=== PATIENT | female | born 1980 | race African-American/Black ===

== ENCOUNTER → 2021-07-08 | Outpatient (CLI) | payer OTHER ==
--- NOTE | 2021-07-08 11:55 | RAD ---
Left ankle 3 views. HISTORY: Left ankle pain 3 views were taken of the left ankle. There is soft tissue swelling in the left lower extremity and l eft ankle. There is no acute fracture or acute osseous abnormality. IMPRESSION: 1. Soft tissue swelling. 2. No osseous abnormality noted in the left ankle. Electronically signed by: José Toscano MD (07/08/2021 11:52 AM) [facility]
--- NOTE | 2021-07-08 12:00 | RAD ---
Left lower extremity venous ultrasound, : History: Left lower extremity pain and swelling, M 79.605 Duplex evaluation including grayscale, color flow and spectral Doppler analysis was performed. The femoral and popliteal veins show no filling defects to suggest DVT. The visualized calf veins are u nremarkable. There is superficial edema in the left calf. IMPRESSION: 1. There is no sonographic evidence of deep vein thrombosis in the left lower extremity. Electronically signed by: José Toscano MD (07/08/2021 11:58 AM) [facility]
== END ==
LOC: RAD 11:23
PROVIDERS: ATTEND Family Medicine
DX: M79.89 Other specified soft tissue disorders (principal); M79.605 Pain in left leg; M25.572 Pain in left ankle and joints of left foot
CPT/HCPCS: 73610; 93971

== ENCOUNTER → 2021-09-08 | Outpatient (CLI) | payer OTHER ==
--- NOTE | 2021-09-08 18:14 | RAD ---
EXAMINATION: US BREAST RT, MG DIAGNOSTIC BILAT History: Right breast lump felt by provider. No location in the right breast specified. Unable to klaus ch the ordering physician's office to obtain more information. Comparison: None. Technique: Bilateral digital diagnostic mammogram views were obtained. CAD was utilized. 3-D tomosyn thesis images were acquired. Subsequently, grayscale and color Doppler ultrasound of the entire right breast was performed. Findings: Mammogram: Breast Tissue Density C : The breasts are heterogeneously dense, which may obscure small masses. There are no dominant masses, suspicious microcalcifications, or architectural distortion. Ultrasound: The entire right breast was imaged. At 10:00, 5 cm from the nipple there is a round anechoic simple c yst measuring 3 mm. This has circumscribed margins, through transmission, and no vascularity. There i s normal fibroglandular tissue seen elsewhere in the breasts. No suspicious mass. No lymphadenopathy in the right axilla. IMPRESSION: 1. No evidence of malignancy. 2. 3 mm incidental simple cyst in the right breast at 10:00 5 cm the nipple. 3. Of note, there was no location or quadrant provided for the reported right breast lump felt by the provider, and we were unable to reach the ordering physician's office for clarification. Therefore, the entire right breast was scanned with ultrasound. However, if there is persistent clinical concern in a focal area, the patient could return to reevaluate that specific area. Otherwise, recommend [facility] screening mammogram. BI-RADS category 2: Benign findings. The images were reviewed with computer aided detection. Patient information is entered into the reminder system with a target due date for the next screening mammogram. Mammography is the most sensitive method for finding small breast cancers, but it does not detect the m all and is not a substitute for careful clinical examination. A negative mammogram does not negate a clinically suspicious finding and should not result in delay in biopsying a clinically suspicious a bnormality. "Our facility is accredited by the [employer] Mammography Program." Electronically signed by: Jessica Frankel MD (09/08/2021 6:11 PM) [id number]
== END ==
LOC: MAMMO 14:35
PROVIDERS: ATTEND Specialist
DX: N60.01 Solitary cyst of right breast (principal); N63.10 Unspecified lump in the right breast, unspecified quadrant
CPT/HCPCS: 76641; 77066

== ENCOUNTER → 2022-01-25 | Outpatient (CLI) | payer OTHER ==
[2022-01-25 11:27] LABS: BASO % 0 % (0-3); EOS # 0.1 x10^3/uL (0.0-0.7); EOS % 2 % (0-3); HEMATOCRIT 38.2 % (36.0-47.0); HEMOGLOBIN 12.7 g/dL (12.0-15.5); LYMPH # 1.5 x10^3/uL (1.0-4.8); LYMPH % 22 % (24-48); MEAN CORPUSCULAR HEMOGLOBIN 31 pg (25-35); MEAN CORPUSCULAR HGB CONC 33 g/dL (31-37); MEAN CORPUSCULAR VOLUME 92 fL (79-100); MONO # 0.7 x10^3/uL (0.0-1.1); MONO % 10 % (0-9); NEUT # 4.7 x10^3uL (1.8-7.7); NEUT % 67 % (31-73); PLATELET COUNT 314 x10^3/uL (140-400); RED BLOOD COUNT 4.14 x10^6/uL (3.50-5.40); RED CELL DISTRIBUTION WIDTH 14.9 % (11.5-14.5)
[2022-01-25 11:34] LABS: ALBUMIN 3.8 g/dL (3.4-5.0); CALCIUM 9.3 mg/dL (8.5-10.1); CREATININE 0.9 mg/dL (0.6-1.0); GFR 82.7; TOTAL BILIRUBIN 0.2 mg/dL (0.2-1.0); TOTAL PROTEIN 7.8 g/dL (6.4-8.2)
[2022-01-25 18:09] LABS: CHOLESTEROL/HDL RATIO 3.1
== END ==
LOC: LAB 10:00
PROVIDERS: ATTEND Clinical Nurse Specialist Psychiatric/Mental Health, Adult
DX: Z79.899 Other long term (current) drug therapy (principal)
CPT/HCPCS: 36415; 80053; 80061; 84146; 85025

== ENCOUNTER → 2022-02-08 | Outpatient (CLI) | payer OTHER ==
--- NOTE | 2022-02-08 16:12 | RAD ---
EXAMINATION: US DPLX VENOUS EXTREMITY LOWER RT (LOWER EXTREMITY VENOUS ULTRASOUND) CLINICAL HISTORY: RLE SWELLING AND PAIN. TECHNIQUE: Sonographic grayscale images obtained of the right lower extremity deep venous system with color flow Doppler, compression, and augmentation techniques as indicated. Images obtained and stor ed in a permanent archive. COMPARISON: None FINDINGS: Technically difficult exam secondary to physical limitations of the patient per production generalist. Greater saphenous and peroneal veins not definitively visualized. No evidence of absent flow or incompressibility within the common femoral vein, femoral vein, or popl iteal vein. Visualized calf veins appear patent on limited evaluation. IMPRESSION: No evidence of right lower extremity DVT. Visualized greater saphenous and peroneal veins. Electronically signed by: Juan Manuel Nguyen DO (02/08/2022 4:10 PM) [id number]
== END ==
LOC: RAD 15:38
PROVIDERS: ATTEND Family Medicine
DX: M79.604 Pain in right leg (principal)
CPT/HCPCS: 93971